=== PATIENT | male | born 1970 | race Two or more races ===

== ENCOUNTER 2023-07-25 23:51 | Emergency (ER) | payer SELFPAY ==
[~2023-07-25] VITALS: Ht 185.4 cm; Wt 97.5 kg
[2023-07-26 00:05] VITALS: BP 121/82; PULSE 100; RESP 20; TEMP 97.7; O2SAT 98
[2023-07-26] MEDS ORDERED: KETOROLAC TROMETH 60MG/2ML VIAL IM ONE (01:30)
[2023-07-26] MEDS ORDERED: HYDROcodone-ACET 5/325MG TAB PO ONE (01:30)
== END 2023-07-26 01:50 | disposition home or self-care (01) ==
LOC: ER 23:51
DX: G89.29 Other chronic pain (principal); M79.7 Fibromyalgia
CPT/HCPCS: 96372; 99283; J1885